=== PATIENT | male | born 1985 | race Two or more races ===

== ENCOUNTER 2018-05-13 19:37 | Inpatient (IN) | payer MEDICAID ==
[~2018-05-13] VITALS: Ht 175.3 cm; Wt 86.0 kg
--- NOTE | 2018-05-13 19:50 | NUR ---
PT SENT FROM FOR LOWER ABD PAIN THAT STARTED YESTERDAY. PT SENT HERE FOR CT. BP ELEVATED. OTHER VSS. PT IN NAD. PT DESCRIBES PAIN A 5/10 BUT COMES IN WAVES AND INCREASES TO 9/10.
[2018-05-13] MEDS ORDERED: MORPHINE SULFATE 4 MG/ML, 1ML ONE (19:55)
[2018-05-13] MEDS ORDERED: ONDANSETRON 2MG/ML, 2ML ONE (19:55)
[2018-05-13] MEDS ORDERED: ONDANSETRON 2MG/ML, 2ML IVPush ONE (20:00)
[2018-05-13] MEDS ORDERED: MORPHINE SULFATE 4 MG/ML, 1ML IVPush PRN (20:00)
[2018-05-13 20:19] LABS: BASOPHILS # (AUTO) 0.02 x10^3/uL (0-0.1); BASOPHILS % (AUTO) 0 % (0-1); EOSINOPHILS # (AUTO) 0.04 x10^3/uL (0-0.4); EOSINOPHILS % (AUTO) 0 % (1-7); LYMPHOCYTES # (AUTO) 1.43 x10^3/uL (1-3.4); LYMPHOCYTES % (AUTO) 9 % (22-44); MD NO; MEAN CORPUSCULAR HEMOGLOBIN 30.1 pg (27.5-34.5); MEAN CORPUSCULAR HGB CONC 33.6 g/dL (33.2-36.2); MEAN CORPUSCULAR VOLUME 89.5 fL (81-97); MEAN PLATELET VOLUME 10.4 fL (7.4-10.4); MONOCYTES % (AUTO) 5 % (2-9); NEUTROPHILS # (AUTO) 14.32 x10^3/uL (1.8-6.8); NEUTROPHILS % (AUTO) 86 % (42-75); PLATELET COUNT 216 x10^3/uL (130-400); RED BLOOD COUNT 5.72 x10^6/uL (4.38-5.82); RED CELL DISTRIBUTION WIDTH 12.7 % (9.4-14.8)
--- NOTE | 2018-05-13 20:27 | NUR ---
UA SENT TO LAB. PT SAYS PAIN HAS IMPROVED WITH MEDICATEION. PT UNABLE TO PROVIDE STOOL SAMPLE AT THIS TIME. CALL LIGHT IN REACH
[2018-05-13 20:28] LABS: ANION GAP 7 mmol/L (5-15); CALCIUM 9.3 mg/dL (8.5-10.1); CHLORIDE 102 mmol/L (98-107); CREATININE 0.92 mg/dL (0.7-1.3)
[2018-05-13 20:29] LABS: ALANINE AMINOTRANSFERASE 96 U/L (12-78); ALBUMIN 4.2 g/dL (3.4-5.0)
[2018-05-13 20:30] LABS: ALKALINE PHOSPHATASE 112 U/L (45-117); BILIRUBIN,TOTAL 0.8 mg/dL (0.2-1.0); TOTAL PROTEIN 8.3 g/dL (6.4-8.2)
[2018-05-13] MEDS ORDERED: PIPERACILLIN/TAZO/PMX 3.375GM 50 ML IVPB ONE (20:30)
[2018-05-13 20:36] LABS: MICROSCOPIC NOT IND
[2018-05-13] MEDS ORDERED: PIPERACILLIN/TAZO/PMX 3.375GM 50 ML ONE (20:44)
[2018-05-13 20:59] LABS: CULTURE INDICATED? NO
[2018-05-13] MEDS ORDERED: ONDANSETRON 2MG/ML, 2ML IVPush PRN (22:00)
[2018-05-13] MEDS ORDERED: ACETAMINOPHEN 325 MG TABLET PO PRN (22:00)
[2018-05-13] MEDS ORDERED: ONDANSETRON ODT 4 MG PO PRN (22:00)
[2018-05-13] MEDS: HEPARIN 5,000 UNITS/ML, 1ML SQ SCH (23:12)
[2018-05-13] MEDS: morphine SULFATE 10 MG/ML, 1ML IVPush PRN (23:12)
[2018-05-13] MEDS: LACTATED RINGERS 1,000 ML IV SCH (23:16)
[2018-05-13 23:30] VITALS: BP 146/99
[2018-05-13 23:57] LABS: CLOSTRIDIUM DIFFICILE ANTIGEN POSITIVE; CLOSTRIDIUM DIFFICILE TOXIN NEGATIVE (Negative)
[2018-05-14 02:38] VITALS: BP 117/67
[2018-05-14] MEDS: AMPICILLIN/SULBACTAM 3 GM in SODIUM CHLORIDE 0.9% 100 ML IV SCH ×4 (03:01→19:54)
[2018-05-14 06:10] LABS: BASOPHILS # (AUTO) 0.03 x10^3/uL (0-0.1); BASOPHILS % (AUTO) 0 % (0-1); EOSINOPHILS # (AUTO) 0.09 x10^3/uL (0-0.4); EOSINOPHILS % (AUTO) 1 % (1-7); LYMPHOCYTES # (AUTO) 1.78 x10^3/uL (1-3.4); LYMPHOCYTES % (AUTO) 12 % (22-44); MD NO; MEAN CORPUSCULAR HEMOGLOBIN 30.3 pg (27.5-34.5); MEAN CORPUSCULAR VOLUME 89.1 fL (81-97); MEAN PLATELET VOLUME 11.4 fL (7.4-10.4); MONOCYTES # (AUTO) 1.14 x10^3/uL (0.2-0.8); MONOCYTES % (AUTO) 8 % (2-9); NEUTROPHILS # (AUTO) 11.39 x10^3/uL (1.8-6.8); NEUTROPHILS % (AUTO) 79 % (42-75); PLATELET COUNT 189 x10^3/uL (130-400); RED BLOOD COUNT 4.96 x10^6/uL (4.38-5.82)
[2018-05-14 06:17] LABS: CHLORIDE 103 mmol/L (98-107)
[2018-05-14 06:24] LABS: ALANINE AMINOTRANSFERASE 73 U/L (12-78); ALBUMIN 3.4 g/dL (3.4-5.0); ALKALINE PHOSPHATASE 91 U/L (45-117); ANION GAP 7 mmol/L (5-15); BILIRUBIN,TOTAL 0.8 mg/dL (0.2-1.0); CREATININE 1.08 mg/dL (0.7-1.3); TOTAL PROTEIN 6.6 g/dL (6.4-8.2)
[2018-05-14] MEDS: LACTATED RINGERS 1,000 ML IV SCH ×3 (06:30→21:25)
[2018-05-14] MEDS: HEPARIN 5,000 UNITS/ML, 1ML SQ SCH ×3 (06:30→21:25)
[2018-05-14 06:40] VITALS: BP 106/68
[2018-05-14] MEDS: morphine SULFATE 10 MG/ML, 1ML IVPush PRN ×2 (06:40→19:54)
[2018-05-14] MEDS: VANCOMYCIN 50 MG/ML ORAL SUSP PO SCH ×3 (11:11→21:00)
[2018-05-14 12:28] VITALS: BP 109/75
[2018-05-14 18:54] VITALS: BP 118/73
[2018-05-15 00:50] VITALS: BP 121/82
[2018-05-15] MEDS: AMPICILLIN/SULBACTAM 3 GM in SODIUM CHLORIDE 0.9% 100 ML IV SCH ×4 (02:00→20:20)
[2018-05-15 05:55] LABS: CHLORIDE 105 mmol/L (98-107)
[2018-05-15] MEDS: HEPARIN 5,000 UNITS/ML, 1ML SQ SCH ×3 (06:00→22:12)
[2018-05-15] MEDS: VANCOMYCIN 50 MG/ML ORAL SUSP PO SCH ×4 (06:00→22:12)
[2018-05-15 06:01] LABS: ALBUMIN 3.1 g/dL (3.4-5.0); ANION GAP 6 mmol/L (5-15); CALCIUM 8.4 mg/dL (8.5-10.1); CREATININE 0.94 mg/dL (0.7-1.3)
[2018-05-15] MEDS: LACTATED RINGERS 1,000 ML IV SCH ×3 (07:44→19:41)
[2018-05-15 08:32] VITALS: BP 117/74
[2018-05-15 16:09] VITALS: BP 113/78
[2018-05-15] MEDS: morphine SULFATE 10 MG/ML, 1ML IVPush PRN (17:23)
[2018-05-15 19:44] VITALS: BP 126/76
[2018-05-16 02:41] VITALS: BP 113/77
[2018-05-16] MEDS: AMPICILLIN/SULBACTAM 3 GM in SODIUM CHLORIDE 0.9% 100 ML IV SCH ×4 (03:01→20:01)
[2018-05-16 05:24] LABS: BASOPHILS # (AUTO) 0.03 x10^3/uL (0-0.1); BASOPHILS % (AUTO) 0 % (0-1); EOSINOPHILS # (AUTO) 0.18 x10^3/uL (0-0.4); EOSINOPHILS % (AUTO) 2 % (1-7); LYMPHOCYTES # (AUTO) 1.95 x10^3/uL (1-3.4); LYMPHOCYTES % (AUTO) 20 % (22-44); MD NO; MEAN CORPUSCULAR HEMOGLOBIN 30.4 pg (27.5-34.5); MEAN CORPUSCULAR HGB CONC 33.9 g/dL (33.2-36.2); MEAN CORPUSCULAR VOLUME 89.7 fL (81-97); MEAN PLATELET VOLUME 10.1 fL (7.4-10.4); MONOCYTES # (AUTO) 0.51 x10^3/uL (0.2-0.8); MONOCYTES % (AUTO) 5 % (2-9); NEUTROPHILS # (AUTO) 6.92 x10^3/uL (1.8-6.8); NEUTROPHILS % (AUTO) 72 % (42-75); PLATELET COUNT 197 x10^3/uL (130-400)
[2018-05-16] MEDS: VANCOMYCIN 50 MG/ML ORAL SUSP PO SCH ×4 (05:57→20:01)
[2018-05-16] MEDS: HEPARIN 5,000 UNITS/ML, 1ML SQ SCH ×3 (05:57→22:37)
[2018-05-16 07:21] VITALS: BP 106/59
[2018-05-16 13:15] VITALS: BP 119/77
[2018-05-16] MEDS: LACTATED RINGERS 1,000 ML IV SCH (15:00)
[2018-05-16 20:04] VITALS: BP 124/71
[2018-05-17 02:16] VITALS: BP 112/70
[2018-05-17] MEDS: AMPICILLIN/SULBACTAM 3 GM in SODIUM CHLORIDE 0.9% 100 ML IV SCH ×3 (02:47→14:55)
[2018-05-17] MEDS: VANCOMYCIN 50 MG/ML ORAL SUSP PO SCH ×3 (05:42→16:38)
[2018-05-17] MEDS: HEPARIN 5,000 UNITS/ML, 1ML SQ SCH ×2 (05:42→14:55)
[2018-05-17 07:13] VITALS: BP 105/67
[2018-05-17] MEDS: LACTATED RINGERS 1,000 ML IV SCH ×2 (10:06)
[2018-05-17] MEDS ORDERED: CIPR500T87 PO (13:11)
[2018-05-17] MEDS ORDERED: METR500T PO (13:11)
[2018-05-17 14:47] VITALS: BP 122/60
[2018-05-17 16:44] VITALS: BP 118/87
== END 2018-05-17 17:04 | disposition home or self-care (01) | DRG 392 ==
LOC: ED 21:14 → EDIP 21:15 → 4NOR 22:28
PROVIDERS: ADMIT Hospitalist; ATTEND Hospitalist
DX: A09 Infectious gastroenteritis and colitis, unspecified (principal); K35.30 Acute appendicitis with localized peritonitis, without perforation or gangrene; R17 Unspecified jaundice; E86.9 Volume depletion, unspecified; Z83.3 Family history of diabetes mellitus
CPT/HCPCS: 36415; 87046; 87427; 99285; J3370; 80048; 80053; 81003; 82040; 83690; 83735; 84100; 85025; 87040; 87252; 87324; 87493; 89055; G0378; J0295; J1644; J2405; J2543; J2270; J7120

== ENCOUNTER → 2018-05-13 | Outpatient (CLI) | payer MEDICAID ==
[~2018-05-13] MED LIST: CIPR500T87 PO; METR500T PO; OMNIPAQUE 350 MG/ML, 100ML BOTTLE ONE
== END | disposition home or self-care (01) ==
LOC: RAD 17:32
PROVIDERS: ATTEND Family Medicine
DX: A04.6 Enteritis due to Yersinia enterocolitica (principal); R60.0 Localized edema
CPT/HCPCS: 74177; Q9967